=== PATIENT | male | born 1980 | race Caucasian/White ===

== ENCOUNTER 2020-12-12 19:50 | Emergency (ER) | payer MEDICAID, MEDICARE, OTHER ==
[~2020-12-12] VITALS: Ht 172.7 cm; Wt 108.9 kg
[2020-12-12 22:47] VITALS: BP 137/97
[2020-12-13] MEDS ORDERED: KETOROLAC TROMETH 60MG/2ML VIAL IM ONE (00:15)
== END 2020-12-13 01:15 | disposition home or self-care (01) ==
LOC: EDBD 19:51 → ER 19:51
DX: M54.41 Lumbago with sciatica, right side (principal); M54.42 Lumbago with sciatica, left side; M25.522 Pain in left elbow; M25.521 Pain in right elbow
CPT/HCPCS: 72100; 96372; 99283; J1885